=== PATIENT | female | born 1950 | race Caucasian/White ===

== ENCOUNTER 2020-09-04 16:15 | Outpatient (CLI) | payer MEDICARE, OTHER, SELFPAY ==
--- NOTE | ~2020-09-04 | MM_ITS ---
EXAMINATION: MM screening [facility] BI w sherry HISTORY: Screening mammogram TECHNIQUE: Craniocaudal and mediolateral oblique 3-D tomosynthesis images were obtained and synthetic 2-D images were generated. CAD analysis was submitted and interpreted. COMPARISON: 10/16/2013 bilateral digital screening mammogram BREAST PARENCHYMAL COMPOSITION: The breasts are almost entirely fatty. FINDINGS: There is no evidence of suspicious mass, calcification, or architectural distortion to sugg est malignancy in either breast. There has been no suspicious interval change. IMPRESSION: 1. No mammographic evidence of malignancy. 2. Recommend routine screening mammography in one year. BI-RADS Category 1: Negative Reviewed, dictated and finalized at location A.
== END 2020-09-04 16:16 | disposition home or self-care (01) ==
LOC: ANHIMG 16:24
PROVIDERS: PCP Family Medicine; Visit Provider Family Medicine
DX: Z12.31 Encounter for screening mammogram for malignant neoplasm of breast (principal)
CPT/HCPCS: 77063; 77067

== ENCOUNTER 2020-10-25 08:50 | Outpatient (CLI) | payer MEDICARE, OTHER, SELFPAY ==
--- NOTE | ~2020-10-25 | DEXA_ITS ---
Bone Density Report Name: Liliam Carmona Age: 70 Sex: Female Ethnicity: White Date of : 1950 Indication: postmenopausal; height loss; prior fracture; hysterectomy; Referring Provider: LESLIE RUIZ Study: Bone densitometry was performed. Exam Date: October 25, 2020 Accession number: [id number] Bone Density: Region BMD T-score Z-score Classification AP Spine (L1-L4) 1.008 -0.4 1.7 Normal Femoral Neck (Left) 0.871 0.2 2.0 Normal Total Hip (Left) 1.056 0.9 2.4 Normal Total Hip Bilateral Avg 1.040 0.8 2.3 Normal Femoral Neck (Right) 0.855 0.1 1.8 Normal Total Hip (Right) 1.022 0.7 2.1 Normal World Health Organization criteria for BMD impression classify patients as: Normal (T-score at or above -1.0), Osteopenia (T-score between -1.0 and -2.5), or Osteoporosis (T-score at or below -2.5). 10-year Fracture Risk: FRAX not reported because: All T-scores for Spine Total, Hip Total, Femoral Neck at or above -1.0 Previous Exams: Region Exam Age BMD T-score BMD Change BMD Change Date g/cm2 vs Baseline vs Previous AP Spine(L1-L4) 10/25/2020 70 1.008 -0.4 -0.098(-8.9%)# -0.098(-8.9%)# 07/25/2002 52 1.106 0.5 Total Hip(Left) 10/25/2020 70 1.056 0.9 -0.039(-3.6%)# -0.039(-3.6%)# 07/25/2002 52 1.096 1.3 Total Hip(Right) 10/25/2020 70 1.022 0.7 -0.059(-5.5%)# -0.059(-5.5%)# 07/25/2002 52 1.081 1.1 *Denotes significance at 95% confidence level, LSC for AP Spine = 0.022 g/cm2, LSC for Total Hip = 0.027 g/cm2 Clinical Information Provided by Patient: Has had a low trauma fracture Has the following medical conditions: Hysterectomy Patient maximum height was 62 Menopause Age: 51 Does not regularly consume dairy products Drinks caffeinated beverages Onset of menses at age 16 Number of children 4 Impression: The patient has normal bone mass. The patient has risk factors, including: previous fracture. No significant bone loss was observed. Discussion: BONE DENSITY IS ABOVE THE MINIMUM DESIRABLE LEVEL AT ALL SKELETAL SITES TESTED. This patient?s bone mineral density is above the minimum desirable level (T-score -1.0 or better) at all sites measured. The patient should follow a healthful lifestyle (good nutrition with adequate calcium and vitamin D, and appropriate weight-bearing exercise). Follow-Up: Consider repeating this study in 5 years or sooner if there is some new clinical indication. Reported by: ANTWON on 10/25/2020
== END 2020-10-25 08:51 | disposition home or self-care (01) ==
LOC: ANHIMG 08:51
PROVIDERS: PCP Family Medicine; Visit Provider Family Medicine
DX: Z78.0 Asymptomatic menopausal state (principal)
CPT/HCPCS: 77080

== ENCOUNTER 2020-11-26 02:09 | Day surgery (SDC) | payer MEDICARE, SELFPAY ==
[2020-11-15 12:38] VITALS: BMI 38.7
--- NOTE | 2020-11-26 07:43 | WPDANESEPPF ---
Anes - Initial Pre Proc Eval Procedure: Operation Date: 11/26/20 10:00 Proposed Procedures p Screening Colonoscopy - Adam Payne MD Date/Time: 11/26/20 07:43 Surgeon: Adam Payne MD Pre Op Diagnosis: hx of colon polyps Patient Data Age: 70 Gender: F Height: 1.57 m Weight: 96 kg Allergies Allergy/AdvReac Type Severity Reaction Status Date / Time Influenza Virus Vaccines AdvReac Nausea Verified 11/26/20 09:32 Home Medications Medication Instructions Recorded Confirmed Type pravastatin 20 mg tablet 20 mg PO QHS #30 tablet 09/25/20 11/15/20 Rx hydrochlorothiazide 12.5 mg capsule 12.5 mg PO DAILY #30 cap 10/22/20 11/15/20 Rx Patient hx anesthesia problems: none Family hx anesthesia problems: none PMFSH Past Medical History Medical History (Updated 11/26/20 @ 07:44 by Tim Marte DO) Asthma Benign essential HTN Colon polyps Hyperlipidemia Postmenopausal Surgical History Surgical History H/O: hysterectomy Family History Family History Mother Hypertension Family history of elevated blood lipids Father Family history of Hodgkin's lymphoma, Onset Age: 45 Patient's father is Social History Social History (Updated 09/25/20 @ 10:17 by Madison Lundberg) Social History: Smoking status: Never smoker Second hand tobacco smoke exposure: No Alcohol intake: never Substance use: never Substance use type: does not use Living arrangements: with family Gender identity (if verbalized by the patient): Female Sexual Orientation (if Verbalized by the Patient): Straight or Heterosexual Spiritual care concerns: No Anes - Eval Final PreProcedure Day of Procedure 11/26/20 07:43 Patient weight: obese Heart: regular rate and rhythm Lungs: clear to auscultation and normal air movement Airway: Mallampati scale class II Neurological: alert and oriented Last oral intake: >/= 8 hours ASA classification: III Emergent: no Anesthetic plan: proceed Anesthesia type and monitoring: general GIVS and standard monitoring Informed Consent: The patient's anesthetic plan and its attendant risks and benefits were discussed with the patient/family/POA. Questions were solicited and answers provided to the satisfaction of the patient/family/POA.
[2020-11-26 09:33] VITALS: BP 160/76; PULSE 62; RESP 18; TEMP 36.8; O2SAT 96
[2020-11-26] MEDS: LACTATED RINGERS 1,000 ML 150 ML IV CONT (09:44)
--- NOTE | 2020-11-26 09:47 | WPDGICN ---
Assessment and Plan Assessment and plan (1) History of colon polyps: Code(s): Z86.010 - Personal history of colonic polyps Status: Acute Assessment and Plan: Patient has a history of colon polyps identified 2012. Plan is for surveillance colonoscopy at this time. High-fiber diet is advised. Further recommendations will be given after endoscopy GI Consult Note Consult date/time: 11/26/20 09:47 HPI: Liliam Carmona is a 70 year old female Presents for follow-up colonoscopy. Patient has a prior history of colon polyps identified in 2012. Patient reports that her current weight appetite and bowel movements are normal. She denies abdominal pain. She has had no bleeding. Family history is noncontributory. Review of Systems Review of Systems: All systems reviewed & are unremarkable except as noted in HPI and below PMFSH Past Medical History Medical History (Updated 11/26/20 @ 09:48 by Adam Payne MD) Asthma Benign essential HTN Colon polyps Hyperlipidemia Postmenopausal Surgical History Surgical History H/O: hysterectomy Family History Family History Mother Hypertension Family history of elevated blood lipids Father Family history of Hodgkin's lymphoma, Onset Age: 45 Patient's father is Social History Social History (Updated 09/25/20 @ 10:17 by Madison Lundberg) Social History: Smoking status: Never smoker Second hand tobacco smoke exposure: No Alcohol intake: never Substance use: never Substance use type: does not use Living arrangements: with family Gender identity (if verbalized by the patient): Female Sexual Orientation (if Verbalized by the Patient): Straight or Heterosexual Spiritual care concerns: No Meds Home Medications and Allergies Home Medications Medication Instructions Recorded Confirmed Type pravastatin 20 mg tablet 20 mg PO QHS #30 tablet 09/25/20 11/26/20 Rx hydrochlorothiazide 12.5 mg capsule 12.5 mg PO DAILY #30 cap 10/22/20 11/26/20 Rx Allergies Allergy/AdvReac Type Severity Reaction Status Date / Time Influenza Virus Vaccines AdvReac Nausea Verified 11/26/20 09:40 Vital Signs Vital Signs - 24 hr 11/26/20 09:33 Temperature 98.3 F Pulse Rate 62 Respiratory Rate 18 Blood Pressure 160/76 H Pulse Oximetry 96 Exam Narrative: Physical exam reveals patient to be alert. Vital signs are stable. HEENT exam is unremarkable. Patient is anicteric. Lungs are clear to auscultation and percussion. Heart is without murmur or extra sounds. Abdominal exam bowel sounds are present soft nontender with no organomegaly. Digital external rectal exam is normal.
[2020-11-26 10:19] VITALS: BP 110/63; PULSE 59; RESP 20; O2SAT 97
[2020-11-26 10:29] VITALS: BP 120/74; PULSE 54; RESP 21; O2SAT 96
[2020-11-26 10:39] VITALS: BP 128/76; PULSE 50; RESP 20; O2SAT 96
== END 2020-11-26 10:54 | disposition home or self-care (01) ==
PROVIDERS: PCP Family Medicine; Visit Provider Internal Medicine Gastroenterology
PROC: 0DJD8ZZ Inspection of Lower Intestinal Tract, Via Natural or Artificial Opening Endoscopic (ICD-10-PCS; CPT 45378; principal; 2020-11-26 10:00)
DX: Z12.11 Encounter for screening for malignant neoplasm of colon (principal); K57.30 Diverticulosis of large intestine without perforation or abscess without bleeding; K63.5 Polyp of colon; J45.909 Unspecified asthma, uncomplicated; I10 Essential (primary) hypertension; E78.5 Hyperlipidemia, unspecified; E66.9 Obesity, unspecified; Z68.38 Body mass index [BMI] 38.0-38.9, adult
CPT/HCPCS: 45385; 88305; J2704; J7120

== ENCOUNTER 2021-09-25 15:51 | Outpatient (CLI) | payer MEDICARE, SELFPAY ==
--- NOTE | ~2021-09-25 | MM_ITS ---
EXAMINATION: MM screening [facility] BI w sherry HISTORY: Screening TECHNIQUE: Craniocaudal and mediolateral oblique 3-D tomosynthesis images were obtained and synthetic 2-D images were generated. CAD analysis was submitted and interpreted. COMPARISON: Comparison to multiple prior studies sequentially, with oldest reviewed study dated 09/07. BREAST PARENCHYMAL COMPOSITION: There are scattered areas of fibroglandular density. FINDINGS: There is no evidence of suspicious mass, calcification, or architectural distortion to sugg est malignancy in either breast. There has been no suspicious interval change. IMPRESSION: 1. No mammographic evidence of malignancy. 2. Recommend routine screening mammography in one year. BI-RADS Category 1: Negative Reviewed, dictated and finalized at location A.
== END 2021-09-25 15:52 | disposition home or self-care (01) ==
PROVIDERS: PCP Family Medicine; Visit Provider Nurse Practitioner Gerontology
DX: Z12.31 Encounter for screening mammogram for malignant neoplasm of breast (principal)
CPT/HCPCS: 77063; 77067

== ENCOUNTER 2022-02-24 13:41 | Emergency (ER) | payer MEDICARE, SELFPAY ==
--- NOTE | ~2022-02-24 | XR_ITS ---
XR hip RT 2V w AP pelvis 02/24/2022 17:36 Indication: Right hip pain Procedure: 3 views of the right hip including AP pelvis Comparison: No prior studies for comparison. Findings: Pelvic rings are intact. Sacral foramen are symmetric. No fracture or traumatic malalignmen t. Hips are symmetric. No soft tissue abnormality. No foreign bodies. Mild osteitis pubis. Impression: 1: No acute bone or joint abnormality Reviewed, dictated and finalized at location A. LY LAW MEDIATOR Impression: 1: No acute bone or joint abnormality
[2022-02-24 13:45] VITALS: BP 147/101; PULSE 57; RESP 18; TEMP 36.6; O2SAT 100
[2022-02-24 16:44] VITALS: BP 161/74; PULSE 53; RESP 18; O2SAT 99
--- NOTE | 2022-02-24 17:14 | ED.LOWEXIN ---
HPI - Extremity Injury (Lower) General Chief Complaint: Extremity Injury, Lower Stated Complaint: rt hip pain Time Seen by Provider: 02/24/22 16:54 History of Present Illness HPI Narrative: 71-year-old female history of hypertension and hyperlipidemia presents to the emergency room for atraumatic right hip pain. Patient states that she woke up this morning complaining of pain in her deep gluteal muscle on the right side. States the pain is improved laying on it, and worse when attempting to ambulate. Denies any known injury or trauma. No history of hip replacements. Related Data Allergies Allergy/AdvReac Type Severity Reaction Status Date / Time Influenza Virus Vaccines AdvReac Nausea Verified 02/24/22 13:52 Review of Systems Review of Systems: CONSTITUTIONAL: Denies fever, chills, or sweats. EYES: Denies visual changes, redness, or discharge. ENT: Denies rhinorrhea, congestion, sore throat, or otalgia. CARDIOVASCULAR: Denies chest pain, palpitations, or edema. RESPIRATORY: Denies cough or dyspnea. GASTROINTESTINAL: Denies abdominal pain, nausea, vomiting, or diarrhea. GENITOURINARY: Denies dysuria or hematuria. SKIN: Denies rash or itching. MUSCULOSKELETAL: Reports right hip pain NEUROLOGIC: Denies headache, numbness, dizziness, or weakness. PSYCHIATRIC: Denies anxiety or depression. [facility] Past Medical History Medical History Asthma Benign essential HTN Colon polyps Hyperlipidemia Postmenopausal Surgical History Surgical History H/O: hysterectomy Family History Family History Mother Hypertension Family history of elevated blood lipids Father Family history of Hodgkin's lymphoma, Onset Age: 45 Patient's father is Social History Social History Social History: Smoking status: Never smoker Second hand tobacco smoke exposure: No Alcohol intake: never Substance use: never Substance use type: does not use Gender identity (if verbalized by the patient): Female Sexual Orientation (if Verbalized by the Patient): Straight or Heterosexual Spiritual care concerns: No Exam Narrative: GENERAL: Well-appearing, well-nourished, no physical limitations, and in no acute distress. HEAD: Normocephalic, atraumatic. EYES: Conjunctivae normal, PERRLA and EOMI. CHEST: Clear to auscultation. No respiratory distress. No wheezes rales or rhonchi. HEART: Regular rate and rhythm. No murmur heard. Normal peripheral pulses. ABDOMEN: Soft, nontender, nondistended, normal active bowel sounds. BACK:No cervical/thoracic/lumbar tenderness, step-offs, bony abnormality; FROM EXTREMITIES: RLE: +TTP to the deep gluteal muscle. FROM Right hip, no obvious bony abnormality, neurovascular is intact distally SKIN: Warm, dry, no rash. No noted wounds NEURO: No focal deficits. Alert and oriented x3. MAEW. CN's II-XI intact bilaterally PSYCH: Cooperative. Normal mood and affect. Course Vital Signs Vital signs: Vital Signs Temperature 36.6 C 02/24/22 13:45 Pulse Rate 57 L 02/24/22 13:45 Respiratory Rate 18 02/24/22 13:45 Blood Pressure 147/101 H 02/24/22 13:45 Pulse Oximetry 100 02/24/22 13:45 Oxygen Delivery Room Air 02/24/22 13:45 Temperature 36.6 C 02/24/22 13:45 Pulse Rate 57 L 02/24/22 17:47 Respiratory Rate 18 02/24/22 17:47 Blood Pressure 147/88 H 02/24/22 17:47 Pulse Oximetry 98 02/24/22 17:47 Oxygen Delivery Room Air 02/24/22 13:45 MDM - Extremity Injury (Lower) Imaging Data Radiologist's impression: Impressions Hip/Pelvis X-Ray 02/24/22 17:38 Impression: 1: No acute bone or joint abnormality Discharge Plan Discharge Clinical Impression: Piriformis syndrome of right side Patient Dispositio
[2022-02-24 17:47] VITALS: BP 147/88; PULSE 57; RESP 18; O2SAT 98
[2022-02-24] MEDS: KETOROLAC (*BKC) 60 MG/2 ML VIAL IM (18:33)
[2022-02-24 19:00] VITALS: BP 123/83; PULSE 103; RESP 16; TEMP 36.8; O2SAT 100
--- NOTE | 2022-02-24 19:03 | PC.NURSE ---
attempted to DC pt, sat her up on side of the bed and pt reports she is unable to stand up because of the sharp pain in right hip that comes and goes. ERP notified and verbal orders for morphine and zofran given
[2022-02-24] MEDS: MORPHINE SULFATE INJ (*CRX) 10 MG/ML AMP 4 MG IM (19:09)
[2022-02-24] MEDS: ONDANSETRON HCL ODT 4 MG TABLET PO (19:09)
[2022-02-24 19:30] VITALS: BP 101/66; PULSE 98; RESP 16; O2SAT 99
== END 2022-02-24 19:40 | disposition home or self-care (01) ==
LOC: ANHED 18:38
PROVIDERS: Emergency Provider Nurse Practitioner Family; PCP Family Medicine
DX: G57.01 Lesion of sciatic nerve, right lower limb (principal); I10 Essential (primary) hypertension; E78.5 Hyperlipidemia, unspecified; J45.909 Unspecified asthma, uncomplicated; Z86.010 Personal history of colon polyps; Z90.710 Acquired absence of both cervix and uterus
CPT/HCPCS: 73502; 96372; 99284; A9270; J1885; J2270

== ENCOUNTER 2022-02-26 14:33 | Outpatient (CLI) | payer MEDICARE, SELFPAY ==
--- NOTE | ~2022-02-26 | CT_ITS ---
EXAMINATION: CT abdomen pelvis wo con DATE: 02/26/2022 15:28 INDICATION: r/o nephrolithiasis TECHNIQUE: Computed tomography (CT) of the abdomen and pelvis was performed without intravenous contr ast. Automated exposure control and iterative reconstruction technique were employed. The dose-length product was 1135.45 mGy-cm. COMPARISON: None. FINDINGS: Lower thorax: Dependent atelectasis. Small focus of mitral calcification. Small hiatal hernia. Liver: Enlarged. Diffuse fatty infiltration. Biliary/Gallbladder: Gallbladder is normal. No bile duct dilation. Pancreas: Fatty infiltrated. No mass. Spleen: Normal. Adrenals:Left adrenal adenoma. Small right adrenal myelolipoma versus lipid rich adenoma. Kidneys: No mass, stone, or hydronephrosis. GI tract: No small or large bowel dilation. Normal appendix. Mild diverticulosis without diverticulit is. Mesentery/Peritoneum: No ascites, mass, or free air. Retroperitoneum: No mass. Mild atherosclerotic abdominal aortic and/or arterial calcifications. Pelvis: The uterus is absent. Bladder wall thickening and surrounding inflammatory change. Soft Tissues: Soft tissues and body wall unremarkable. Bones: No acute osseous finding. IMPRESSION: Hepatomegaly with steatosis. Likely cystitis, correlate with urinalysis. No CT evidence of nephrolith iasis or obstructive uropathy. Reviewed, dictated and finalized at location K. Y DUTY PRESS OPERATOR IMPRESSION: Hepatomegaly with steatosis. Likely cystitis, correlate with urinalysis. No CT evidence of nephrolithiasis or obstructive uropathy.
[2022-02-26 15:55] LABS: Basophils Absolute Auto 0.1 K/mm3 (0.0-0.1); Basophils Percent Auto 0.8 % (0.2-1.2); Eosinophils Absolute Auto 0.3 K/mm3 (0-0.3); Hematocrit 44.5 % (37.0-47.0); Hemoglobin 14.3 g/dL (12.0-15.0); Immature Granulocyte Absolute 0.05 K/mm3 (0.00-0.031); Immature Granulocyte Percent A 0.4 % (0-0.5); Lymphocytes Percent Auto 10.1 % (18.3-44.2); Mean Corpuscular HGB Conc 32.1 g/dl (32-36); Mean Corpuscular Hemoglobin 29.4 pg (26-34); Mean Corpuscular Volume 91.4 fl (80-100); Mean Platelet Volume 9.7 fl (7.4-10.4); Monocytes Absolute Auto 0.9 K/mm3 (0.1-0.6); Monocytes Percent Auto 6.9 % (2.6-8.5); Neutrophils Absolute Auto 10.2 K/mm3 (1.3-6.7); Neutrophils Percent Auto 79.8 % (45.5-73.1); Platelet Count Result 342 k/mm3 (150-375); Red Blood Count 4.87 M/mm3 (4.2-5.4); White Blood Count 12.8 K/mm3 (4.5-10.0)
[2022-02-26 16:09] LABS: Alanine Aminotransferase 31 U/L (6-35); Albumin Level 4.4 g/dL (3.5-5.1); Alkaline Phosphatase 49 U/L (38-126); Anion Gap 7 mmol/L (8-16); Aspartate Amino Transferase 35 U/L (14-36); Bilirubin,Total 0.5 mg/dL (0.2-1.3); Blood Urea Nitrogen 21 mg/dL (7-17); Calcium 8.6 mg/dL (8.4-10.2); Carbon Dioxide 28 mmol/L (22-30); Chloride 103 mmol/L (98-107); Estimated Glomerular Filt Rate > 60; Glucose 94 mg/dL (65-110); Potassium 3.9 mmol/L (3.4-5.0); Sodium 138 mmol/L (137-145)
== END 2022-02-26 14:34 | disposition home or self-care (01) ==
LOC: ANHIMG 14:39
PROVIDERS: PCP Family Medicine; Visit Provider Physician Assistant
DX: R31.9 Hematuria, unspecified (principal); M54.50 Low back pain, unspecified; R16.0 Hepatomegaly, not elsewhere classified
CPT/HCPCS: 36415; 74176; 80053; 85025

== ENCOUNTER 2022-12-10 14:39 | Outpatient (CLI) | payer MEDICARE, SELFPAY ==
--- NOTE | ~2022-12-10 | MM_ITS ---
EXAMINATION: MM screening [facility] BI w sherry HISTORY: Screening mammogram TECHNIQUE: Craniocaudal and mediolateral oblique 3-D tomosynthesis images were obtained and synthetic 2-D images were generated. CAD analysis was submitted and interpreted. COMPARISON: 09/25/2021, 09/04/2020 bilateral screening mammogram examinations BREAST PARENCHYMAL COMPOSITION: The breasts are almost entirely fatty. FINDINGS: There is no evidence of suspicious mass, calcification, or architectural distortion to sugg est malignancy in either breast. There has been no suspicious interval change. IMPRESSION: 1. No mammographic evidence of malignancy. 2. Recommend routine screening mammography in one year. BI-RADS Category 1: Negative Reviewed, dictated and finalized at location A.
== END 2022-12-10 14:40 | disposition home or self-care (01) ==
LOC: ANHIMG 14:40
PROVIDERS: PCP Family Medicine; Visit Provider Physician Assistant
DX: Z12.31 Encounter for screening mammogram for malignant neoplasm of breast (principal)
CPT/HCPCS: 77063; 77067

== ENCOUNTER 2023-01-13 12:22 | Outpatient (CLI) | payer MEDICARE, SELFPAY ==
--- NOTE | ~2023-01-13 | CT_ITS ---
EXAMINATION: CT abdomen pelvis wo/w con DATE: 01/13/2023 13:11 INDICATION: Gross hematuria. TECHNIQUE: Computed tomography (CT) of the abdomen and pelvis was performed without and with intraven ous contrast using a total of 130 mL Omnipaque-350 intravenous contrast with a double-bolus technique for simultaneous opacification of the renal parenchyma and renal collecting system. Automated exposu re control and iterative reconstruction technique were employed. The dose-length product was 2736.90 mGy-cm. COMPARISON: CT abdomen and pelvis 02/26/2022 FINDINGS: The visualized portions of the lung bases demonstrate mild atelectasis. There are chronic subpleural bands in the lower lobes. No pleural effusion. The heart size is normal. No pericardial effusion. The re is a small sliding hiatal hernia. There is diffuse hepatic steatosis. The gallbladder, spleen, and pancreas are normal. There is a 1.9 cm mass in right adrenal gland containing fat, consistent with a myelolipoma. There is a 19 mm mass in left adrenal gland measuring low-attenuation, consistent with an adenoma. There are cysts in the kidneys measuring up to 9 mm on the right. There is no urolithiasi s. The ureters are well opacified and are normal. The bladder is not well distended. There is a left inguinal hernia containing fat. There is diverticulosis of the colon without evidence of diverticulit is. The appendix is not visualized. There are no pathologically enlarged lymph nodes. There is no smiley e intraperitoneal fluid. There is severe thoracic and lumbar spondylosis. IMPRESSION: 1. No etiology for hematuria. Reviewed, dictated and finalized at location E.
--- NOTE | ~2023-01-13 | XR_ITS ---
EXAMINATION: XR abdomen/kub 1V DATE: 01/13/2023 12:48 INDICATION: Intermittent gross hematuria. TECHNIQUE: A supine view of the abdomen on 2 radiographs was obtained. COMPARISON: CT abdomen and pelvis 01/13/2023 FINDINGS: There are no dilated loops of bowel. There is a moderate volume of stool in the colon. Ther e are phleboliths in the pelvis. There is no urolithiasis. IMPRESSION: 1. No urolithiasis. Reviewed, dictated and finalized at location E. IMPRESSION: 1. No urolithiasis.
[2023-01-13 12:58] LABS: Estimated Glomerular Filt Rate > 60
== END 2023-01-13 12:23 | disposition home or self-care (01) ==
PROVIDERS: PCP Family Medicine; Visit Provider Nurse Practitioner Family
DX: R31.0 Gross hematuria (principal)
CPT/HCPCS: 74018; 74178; Q9967

== ENCOUNTER 2024-07-05 08:15 | Outpatient (RCR) | payer MEDICARE, SELFPAY ==
[2024-07-05 08:20] VITALS: BMI 37.7
[2024-07-05 08:25] VITALS: BMI 37.7
== END 2024-07-25 09:22 | disposition home or self-care (01) ==
LOC: ANHDMC 08:15
PROVIDERS: PCP Family Medicine; Visit Provider Student in an Organized Health Care Education/Training Program
DX: E11.9 Type 2 diabetes mellitus without complications (principal); Z71.89 Other specified counseling
CPT/HCPCS: 97802; G0108; G0109

== ENCOUNTER 2024-08-11 13:59 | Outpatient (RCR) | payer MEDICARE, SELFPAY | END 2024-10-31 10:16 | disposition home or self-care (01) | LOC: ANHDMC 13:59 | PROVIDERS: PCP Family Medicine; Visit Provider Student in an Organized Health Care Education/Training Program | DX: E11.9 Type 2 diabetes mellitus without complications (principal); Z71.89 Other specified counseling | CPT/HCPCS: G0109 ==